=== PATIENT | female | born 1960 | race African-American/Black ===

== ENCOUNTER 2018-04-05 11:41 | Emergency (ER) | payer MEDICAID ==
[~2018-04-05] VITALS: Ht 170.2 cm; Wt 90.0 kg
[~2018-04-05 11:41] MED LIST: ALBU18HF2 IH; DIVA-18 PO; FURO20TA4 PO; LISI10TA5 PO; QUET400T PO; TRAZ-129 PO
[2018-04-05 11:43] VITALS: BP 135/79
== END 2018-04-05 15:57 | disposition left against medical advice (07) ==
LOC: ER 12:52
DX: Z02.89 Encounter for other administrative examinations (principal); Z53.21 Procedure and treatment not carried out due to patient leaving prior to being seen by health care provider